=== PATIENT | male | born 1990 | race Caucasian/White ===

== ENCOUNTER → 2023-11-25 13:31 | Outpatient (REF) | payer OTHER, SELFPAY | LOC: MRI 3T 13:31 | PROVIDERS: ATTENDING PHYSICIAN Orthopaedic Surgery | DX: M24.812 Other specific joint derangements of left shoulder, not elsewhere classified (principal); S46.012A Strain of muscle(s) and tendon(s) of the rotator cuff of left shoulder, initial encounter | CPT/HCPCS: 23350; 73040; 73222 ==

== ENCOUNTER → 2024-10-10 16:17 | Outpatient (REF) | payer OTHER, SELFPAY | LOC: HWRAD 16:17 | PROVIDERS: ATTENDING PHYSICIAN Nurse Practitioner Family | DX: M25.562 Pain in left knee (principal) | CPT/HCPCS: 73564 ==

== ENCOUNTER → 2024-10-25 09:55 | Outpatient (REF) | payer OTHER, SELFPAY | LOC: PAVMRI 09:55 | PROVIDERS: ATTENDING PHYSICIAN Orthopaedic Surgery; FAMILY PHYSICIAN Nurse Practitioner Family | DX: M23.92 Unspecified internal derangement of left knee (principal) | CPT/HCPCS: 73721 ==